=== PATIENT | male | born 1970 | race Caucasian/White ===

== ENCOUNTER 2023-08-18 13:22 | Emergency (ER) | payer OTHER, SELFPAY ==
[2023-08-18 13:45] VITALS: BP 141/78; PULSE 78; RESP 16; TEMP 36.9; O2SAT 98; BMI 25.8
--- NOTE | 2023-08-18 13:48 | W.ED.PSYCHS ---
HPI - Psych General: Chief Complaint: Psychiatric Symptoms Stated Complaint: MHE Time Seen by Provider: 08/18/23 13:23 Source: patient Mode of arrival: ambulatory Limitations: no limitations History of Present Illness: 52-year-old male states that he has battled depression for some time states he had some passing suicidal thoughts he states he had a plan in the past driving off a bridge. States he is not on any meds has never been admitted and does not see a physician or counselor or psychiatrist. He states he feels like his depression is worsening and wanted to get an evaluation he denies any active suicidal thoughts or plan at this time but states he is very depressed. Associated symptoms: Reports depression Review of Systems Const: Denies: fever(s), chills, body aches or change in appetite ENMT: Denies: throat pain or dental pain Card: Denies: chest pain Resp: Denies: dyspnea GI: Denies: abdominal pain, nausea, vomiting or diarrhea Musc: Denies: neck pain or back pain Skin/Breast: Denies: rash Neuro: Denies: headache(s) Psych: Reports: depression Physical Exam Const: COMMON NORMALS: no acute distress, patient oriented x3 and healthy appearing HENMT: COMMON NORMALS: normocephalic and atraumatic HEAD & SCALP: normocephalic and atraumatic Neck/C-Spine: COMMON NORMALS: full ROM and supple Chest: COMMONS NORMALS: normal inspection of the chest Resp: COMMON NORMALS: normal respiratory effort Cardio: COMMON NORMALS: regular rate RATE: regular rate Extremity: COMMON NORMALS: normal to inspection and full ROM Neuro: COMMON NORMALS: patient oriented x3, moves all extremities and no focal motor deficits Psych: COMMON NORMALS: mental status grossly normal, Normal thought process present and cooperative MOOD & AFFECT: Yes depressed mood THOUGHT PROCESS: Normal thought process present Skin: COMMON NORMALS: no rashes or lesions noted and no wounds GENERAL SKIN EXAM: no rashes or lesions noted Course Vital Signs: Vital signs: Vital Signs Temperature 98.4 F 08/18/23 13:45 Pulse Rate 78 08/18/23 13:45 Respiratory Rate 16 08/18/23 13:45 Blood Pressure 141/78 08/18/23 13:45 Pulse Oximetry 98 08/18/23 13:45 Oxygen Delivery Me thod Room Air 08/18/23 13:45 MDM - Psych Medical Decision Making Patient presents here with depression he is not actively suicidal patient was seen by psychiatrist Dr. Acuna in the ER who recommended placing patient on Prozac having follow-up with the crisis center in 1 week he is to return if worsening he understands agrees to plan. Medical Records I reviewed the patient's medical records. Lab Data I reviewed the patient's lab results. 08/18/23 14:35 08/18/23 14:35 Laboratory Results WBC 5.72 10^3/uL (3.29-11.43) 08/18/23 14:35 RBC 4.35 10^6/uL (3.85-5.65) 08/18/23 14:35 Hgb 12.30 g/dL (11.27-16.99) 08/18/23 14:35 Hct 39.0 % (37-53) 08/18/23 14:35 MCV 89.7 fl (82-101) 08/18/23 14:35 MCH 28.3 pg (27-33) 08/18/23 14:35 MCHC 31.5 g/dL (30-55) 08/18/23 14:35 RDW 14.4 % (12.1-15.1) 08/18/23 14:35 Plt Count 240 10^3/cmm (157-399) 08/18/23 14:35 MPV 9.7 fL (7.4-10.4) 08/18/23 14:35 Neut % (Auto) 53.9 % 08/18/23 14:35 Lymph % (Auto) 24.8 % 08/18/23 14:35 [place] % (Auto) 18.7 % 08/18/23 14:35 Eos % (Auto) 1.7 % 08/18/23 14:35 Baso % (Auto) 0.7 % 08/18/23 14:35 Neut # (Auto) 3.08 10^3/uL (1.8-7.7) 08/18/23 14:35 Lymph # (Auto) 1.4 10^3/uL (0.8-4.8) 08/18/23 14:35 [place] # (Auto) 1.1 10^3/uL (0.2-0.9) H 08/18/23 14:35 Eos # (Auto) 0.1 10^3/uL (0.0-0.8) 08/18/23 14:35 Baso # (Auto) 0.0 10^3/uL (0.0-0.1) 08/18/23 14:35 Nucleated RBC % (auto) 0 % 08/18/23 14:35 Nucleated RBCs # 0.0 /100WBC 08/18/23 14:35 Sodium 139 mmol/L (136-145) 08/18/23 14:35 Potassium 3.6 mmol/L (3.5-5.1) 08/18/23 14:35 Chloride 102 mmol/L (98-107) 08/18/23 14:35 Carbon Dioxide 26 mmol/L (22-29) 08/18/23 14:35 Anion Gap 14.6 (5-19) 08/18/23 14:35 BUN 14 mg/dL (6-20) 08/18/23 14:35 Creatinine 0.8 mg/dL (0.7-1.2) 08/18/23 14:35 GFR Calculation 100.7 mL/min (90-130) 08/18/23 14:35 Glucose 102 mg/dL (65-115) 08/18/23 14:35 Calculated Osmolality 289 mOsm/kg (285-295) 08/18/23 14:35 Calcium 9.7 mg/dL (8.5-10.5) 08/18/23 14:35 Total Bilirubin 0.6 mg/dL (0.15-1.2) 08/18/23 14:35 AST 16 U/L (0-40) 08/18/23 14:35 ALT 15 U/L (0-41) 08/18/23 14:35 Alkaline Phosphatase 66 U/L (40-130) 08/18/23 14:35 Total Protein 7.6 g/dL (6.6-8.7) 08/18/23 14:35 Albumin 4.7 g/dL (3.5-5.2) 08/18/23 14:35 Globulin 2.9 g/dL (1.3-4.6) 08/18/23 14:35 Salicylates 0.5 mg/dL (3-10) L 08/18/23 14:35 Acetaminophen < 5.0 ug/mL (10-30) L 08/18/23 14:35 Ethyl Alcohol < 10 mg/dL (0-10) 08/18/23 14:35 No radiology studies performed this visit Discharge Plan Discharge Patient Disposition: Home Clinical Impression: Depression Condition: Stable Prescriptions: New fluoxetine [Prozac] 20 mg capsule 20 mg PO DAILY Qty: 30 0RF No Action simvastatin 40 mg tablet 40 mg PO DAILY lisinopril 10 mg tablet 10 mg PO DAILY metoprolol tartrate 50 mg tablet 50 mg PO BID aspirin 81 mg capsule 81 mg PO DAILY ezetimibe 10 mg tablet 10 mg PO DAILY Discharge Orders: Discharge ED (Routine); Ordered 08/18/23 Ordered By: Mckinley Redman Discharge Diet: Advance as tolerated Discharge Activity: Resume usual activity Patient Instructions: Depression (ED) Coding Level of Care Code ED Search Advertising Strategist for Kamini Hector
[2023-08-18 14:45] LABS: Basophils % 0.7 %; Eosinophils # 0.1 10^3/uL (0.0-0.8); Eosinophils % 1.7 %; Lymphocytes # 1.4 10^3/uL (0.8-4.8); Lymphocytes % 24.8 %; Mean Corpuscular HGB Conc 31.5 g/dL (30-55); Mean Corpuscular Hemoglobin 28.3 pg (27-33); Mean Corpuscular Volume 89.7 fl (82-101); Mean Platelet Volume 9.7 fL (7.4-10.4); Monocytes # 1.1 10^3/uL (0.2-0.9); Monocytes % 18.7 %; Neutrophils # 3.08 10^3/uL (1.8-7.7); Neutrophils % 53.9 %; Nucleated Red Blood Cells % 0 %; Platelet Count 240 10^3/cmm (157-399); Red Blood Count 4.35 10^6/uL (3.85-5.65); Red Cell Distribution Width 14.4 % (12.1-15.1); White Blood Count 5.72 10^3/uL (3.29-11.43)
[2023-08-18 15:19] LABS: Alanine Aminotransferase 15 U/L (0-41); Albumin Level 4.7 g/dL (3.5-5.2); Alkaline Phosphatase 66 U/L (40-130); Anion Gap 14.6 (5-19); Aspartate Amino Transferase 16 U/L (0-40); Blood Urea Nitrogen 14 mg/dL (6-20); Calcium 9.7 mg/dL (8.5-10.5); Carbon Dioxide 26 mmol/L (22-29); Chloride 102 mmol/L (98-107); Globulin 2.9 g/dL (1.3-4.6); Glomerular Filtration Rate 100.7 mL/min (90-130); Glucose 102 mg/dL (65-115); Osmolality Calculated 289 mOsm/kg (285-295); Potassium 3.6 mmol/L (3.5-5.1); Salicylate 0.5 mg/dL (3-10); Sodium 139 mmol/L (136-145); Total Bilirubin 0.6 mg/dL (0.15-1.2); Total Protein 7.6 g/dL (6.6-8.7)
[2023-08-18 15:22] LABS: Acetaminophen < 5.0 ug/mL (10-30); Alcohol Level < 10 mg/dL (0-10)
[2023-08-18] MEDS: fluoxetine 20 mg Capsule PO (16:49)
== END 2023-08-18 16:53 | disposition home or self-care (01) ==
PROVIDERS: Emergency Provider Emergency Medicine
DX: F32.A Depression, unspecified (principal); Z79.82 Long term (current) use of aspirin
CPT/HCPCS: 80053; 80307; 85025; 99283